=== PATIENT | female | born 1970 | race Caucasian/White ===

== ENCOUNTER → 2016-11-26 | Outpatient (CLI) | payer BC ==
[~2016-11-26] MED LIST: GEODAN PO; LAMICTAL PO; LEXAPRO PO; NAPROXEN PO; PREVACID PO
--- NOTE | ~2016-11-26 | MR113 ---
[facility] A Service of [facility] & [facility] / [facility] RADIOLOGY TEXT RESULTS PATIENT: NATHALIE CHOPRA LOCATION: [facility] : 70 UNIT #: [id number] AGE: [address]: Ivett Phillips APRN SEX: F ORDER DR: [id number] [address] [address] [id number] O MR#: [id number] Acc #: [id number] NAME: NATHALIE CHOPRA : 1970 SEX: F STUDY DATE/TIME: 11/26/2016 12:33 UNIT: [facility] ROOM: STUDY DESCRIPTION: MR Lumbar Wo Contrast Attending Physician: Ivett Phillips A.P.R.N. Referring Physician: Ivett Phillips A.P.R.N. Ordering Physician: Ivett Phillips A.P.R.N. Primary Care Physician: Ivett Phillips A.P.R.N. MRI CENTER REPORT This report is preliminary unless electronic signature is present. EXAM MRI of the lumbar spine without contrast HISTORY 46-year-old female low back pain with bilateral radiculopathy, 3-4 months. History of rheumatoid arthritis and fibromyalgia. COMPARISON Lumbar spine films 03/21/2016 TECHNIQUE Multiplanar multiecho images of the lumbar spine utilizing a high field magnet dedicated protocol. Normal spinal alignment. Lumbar vertebral marrow signal appears normal. Normal termination of the conus. FINDINGS L1-2: The disc spaces maintained. No spinal or foraminal stenosis. At L2-3 mild disc desiccation. No spinal or foraminal stenosis. At L3-4 mild disc desiccation. No spinal or foraminal stenosis. At L4-5 mild disc desiccation. No spinal or foraminal stenosis. Minimal bilateral L4-5 facet arthropathy right greater than left. At L5-S1 the disc spaces maintained. Minimal posterior hypertrophic change along the right contributing to mild narrowing of the right L5-S1 foramen but no evidence of nerve root impingement. Mild bilateral L5-S1 facet arthropathy. The paravertebral soft tissues are unremarkable. IMPRESSION [facility] A Service of [facility] & [facility] / [facility] RADIOLOGY TEXT RESULTS PATIENT: NATHALIE CHOPRA LOCATION: [facility] : 70 UNIT #: [id number] AGE: [address]: Ivett Phillips APRN SEX: F ORDER DR: Lower lumbar spine facet arthropathy. This is most pronounced on the right at L4-5 and bilaterally at L5-S1. No focal disc protrusions or herniations and no significant spinal or foraminal stenosis. Dictated by... Jero Ledezma M.D. THIS IS AN ELECTRONICALLY VERIFIED REPORT Jero Ledezma M.D. at 11/28/2016 7:59 AM MATTEO/lance TD: 11/27/2016 12:19 JOB #: [id number] MRI CENTER REPORT Page 1 of 1
== END | disposition home or self-care (01) ==
LOC: SMRI 11-25 11:00
DX: M54.5 Low back pain (principal); M46.96 Unspecified inflammatory spondylopathy, lumbar region
CPT/HCPCS: 72148